=== PATIENT | female | born 1950 | race Caucasian/White ===

== ENCOUNTER → 2017-01-22 | Outpatient (CLI) | payer MEDICARE, OTHER ==
[~2017-01-22] MED LIST: ASPI-558 PO; CINN500C4 PO; FISH1CAP59 PO; GLIP-72 PO; INSU100C11 SQ; LISI-126 PO; LOVA40TA70 PO; METF-200 PO
--- NOTE | 2017-01-22 15:46 | DI ---
Indication: ITS.REASON: S49.82XA INJURY PROCEDURE: MRI SHOULDER LEFT W/O CONTRAST: Encounter: Initial Comparison: None Technique: Multiplanar multisequence MR imaging of the left shoulder was performed without contrast. Findings: The rotator cuff in general is thickened and of increased signal intensity with some heterogeneous signal alterations consistent with severe tendinosis. Far anteriorly and distally the supraspinous tendon appears to demonstrate a small nonretracted full-thickness tear. There is moderate subdeltoid-subacromial bursitis. No marrow edema pattern. Small subcortical cyst subjacent to the torn rotator cuff in the greater tuberosity. Moderate acromioclavicular joint osteoarthrosis. No focal muscular atrophy. Subscapularis tendon demonstrates mild inflammatory changes. Biceps tendon within the intertubercular groove instructed by fluid suggesting bicipital tenosynovitis. Impression: 1. Severe rotator cuff tendinosis. 2. Full-thickness tear of the distal anterior component of the supraspinatus tendon without retraction. 3. Subdeltoid subacromial bursitis. 4. Bicipital tenosynovitis. 5. Moderately severe acromioclavicular joint osteoarthrosis. .
== END ==
LOC: IMA 14:10
PROVIDERS: ATTEND Orthopaedic Surgery
DX: S46.012A Strain of muscle(s) and tendon(s) of the rotator cuff of left shoulder, initial encounter (principal); W19.XXXA Unspecified fall, initial encounter; Y93.9 Activity, unspecified; Y92.009 Unspecified place in unspecified non-institutional (private) residence as the place of occurrence of the external cause; Y99.9 Unspecified external cause status; M19.012 Primary osteoarthritis, left shoulder; M65.812 Other synovitis and tenosynovitis, left shoulder; M75.52 Bursitis of left shoulder